=== PATIENT | female | born 2000 | race Two or more races ===

== ENCOUNTER → 2020-12-12 15:42 | Outpatient (CLI) | payer OTHER | END | disposition home or self-care (01) | LOC: PPH VACUNA 15:42 | DX: Z23 Encounter for immunization (principal) ==

== ENCOUNTER 2021-01-02 08:00 | Outpatient (CLI) | payer OTHER | END 2021-01-02 08:30 | disposition home or self-care (01) | LOC: PPH VACUNA 08:00 | DX: Z23 Encounter for immunization (principal) ==

== ENCOUNTER 2021-08-20 14:30 | Outpatient (CLI) | payer OTHER | END 2021-08-20 14:45 | disposition home or self-care (01) | LOC: PPH VACUNA 14:30 | PROVIDERS: ATTEND Emergency Medicine Pediatric Emergency Medicine | DX: Z23 Encounter for immunization (principal) ==